=== PATIENT | female | born 1985 | race African-American/Black ===

== ENCOUNTER 2017-09-19 19:10 | Observation (INO) | payer OTHER ==
[~2017-09-19] VITALS: Ht 167.6 cm; Wt 75.3 kg
[~2017-09-19 19:10] MED LIST: FERR1TAB25 PO; IBUP-779 PO; MULT1CAP34 PO
[2017-09-19] MEDS: LACTATED RINGERS 1,000 ML IV SCH ×2 (19:53→21:45)
[2017-09-19 20:07] LABS: CLARITY URINE CLOUDY (CLEAR); COLOR URINE YELLOW (YELLOW); GLUCOSE URINE NEGATIVE (NEGATIVE); KETONES URINE NEGATIVE (NEGATIVE); LEUKOCYTE ESTERASE URINE 1+ (NEGATIVE); NITRITE URINE NEGATIVE (NEGATIVE); OCCULT BLOOD URINE NEGATIVE (NEGATIVE); PROTEIN URINE NEGATIVE (NEGATIVE); SPECIFIC GRAVITY URINE 1.031 (1.005-1.030)
[2017-09-19 20:18] LABS: *AMPHETAMINES SCREEN URINE NEGATIVE (NEGATIVE); *BARBITURATES SCREEN URINE NEGATIVE (NEGATIVE); *BENZODIAZEPINES SCREEN URINE NEGATIVE (NEGATIVE); *COCAINE SCREEN URINE NEGATIVE (NEGATIVE); CANNABINOID URINE SCREEN NEGATIVE (NEGATIVE); METHADONE URINE SCREEN NEGATIVE (NEGATIVE); OPIATES URINE SCREEN NEGATIVE (NEGATIVE); PHENCYCLIDINE URINE SCREEN NEGATIVE (NEGATIVE)
[2017-09-19] MEDS ORDERED: CEFAZOLIN 2,000 MG in DEXT 5% WATER 100 ML IV SCH (22:00)
== END 2017-09-19 22:42 | disposition home or self-care (01) ==
LOC: L&D 19:10
PROVIDERS: ADMIT Obstetrics & Gynecology; ATTEND Obstetrics & Gynecology
DX: O62.9 Abnormality of forces of labor, unspecified (principal); Z3A.39 39 weeks gestation of pregnancy
CPT/HCPCS: 76805; 76818; 80305; 81001; 96365; 99281; G0378; J0690; J7120; J7060

== ENCOUNTER 2017-09-20 02:23 | Inpatient (IN) | payer OTHER ==
[~2017-09-20] VITALS: Ht 172.7 cm; Wt 76.2 kg
[2017-09-20] MEDS ORDERED: DEXT 5%/LR + PITOCIN 20UNITS/L 1,000 ML IV SCH ×2 (03:07→05:21)
[2017-09-20] MEDS ORDERED: LACTATED RINGERS 1,000 ML IV SCH (03:07)
[2017-09-20] MEDS ORDERED: CARBOPROST TROMETHAMINE 250 MCG/ML AMPUL IM PRN (03:15)
[2017-09-20] MEDS ORDERED: METHYLERGONOVINE MALEATE 0.2 MG/ML IM PRN ×2 (03:15→05:30)
[2017-09-20] MEDS ORDERED: NALOXONE HCL 0.4 MG/ML 1ML VIAL IM PRN (03:15)
[2017-09-20] MEDS ORDERED: LIDOCAINE HCL 1% 20ML VIAL (Pyxis) INJ INFIL SCH (03:15)
[2017-09-20] MEDS ORDERED: MISOPROSTOL 100MCG TABLET VG SCH (03:15)
[2017-09-20] MEDS ORDERED: BUTORPHANOL TARTRATE 2 MG/ML VIAL IV PRN (03:15)
[2017-09-20] MEDS ORDERED: PENICILLIN G POTASSIUM 5 MMU in DEXT 5% WATER 100 ML IV NR (04:00)
[2017-09-20 05:13] LABS: CARBON DIOXIDE 20 mEq/L (21-32); CHLORIDE 103 mEq/L (98-107)
[2017-09-20 05:16] LABS: INR 0.9; PARTIAL THROMBOPLASTIN TIME 27.6 sec (23.4-31.0); PROTHROMBIN TIME 9.1 sec (9.4-11.6)
[2017-09-20 05:23] LABS: BASOPHILS % 0.4 % (0.0-2.0); EOSINOPHILS % 0.2 % (0.0-5.0); HEMATOCRIT. 37.1 % (36.0-48.0); HEMOGLOBIN. 12.2 g/dL (12.0-16.0); MEAN CORPUSCULAR HEMOGLOBIN 29.5 pg (28.0-32.0); MEAN CORPUSCULAR VOLUME 90.1 fL (81.0-99.0); MEAN PLATELET VOLUME 12.4 fl (7.4-10.4); MONOCYTES % 10.6 % (2.0-8.0); NEUTROPHILS % 62.8 % (40.0-76.0); PLATELET 145 x1000/uL (130-400); RED BLOOD CELL COUNT 4.12 mill/uL (4.2-5.4); RED CELL DISTRIBUTION WIDTH 14.6 % (11.6-14.6)
[2017-09-20] MEDS ORDERED: RHO(D) IMMUNE GLOBULIN 300 MCG/SYR IM PRN (05:30)
[2017-09-20] MEDS ORDERED: LANOLIN OINT 0.25 GM TUBE TOP PRN (05:30)
[2017-09-20] MEDS ORDERED: IBUPROFEN 400MG TABLET PO PRN (05:30)
[2017-09-20 07:52] LABS: HEPATITIS B SURFACE ANTIGEN NEGATIVE; RUBELLA IGG 30.9 IU/mL (4.99-10)
[2017-09-20 08:00] VITALS: BP 112/62
[2017-09-20] MEDS: IBUPROFEN 800MG TABLET PO PRN ×2 (08:17→20:27)
[2017-09-20 08:30] VITALS: BP 123/51
[2017-09-20] MEDS ORDERED: PRENATAL VIT/FE FUMARATE/FA TABLET PO SCH (09:00)
[2017-09-20] MEDS ORDERED: INFLUENZA VIRUS VACCINE 0.5ML SYR IM ONE (10:00)
[2017-09-20 12:29] LABS: *AMPHETAMINES SCREEN URINE NEGATIVE (NEGATIVE); *BARBITURATES SCREEN URINE NEGATIVE (NEGATIVE); *BENZODIAZEPINES SCREEN URINE NEGATIVE (NEGATIVE); *COCAINE SCREEN URINE NEGATIVE (NEGATIVE); CANNABINOID URINE SCREEN NEGATIVE (NEGATIVE); METHADONE URINE SCREEN NEGATIVE (NEGATIVE); OPIATES URINE SCREEN NEGATIVE (NEGATIVE); PHENCYCLIDINE URINE SCREEN NEGATIVE (NEGATIVE)
[2017-09-20 16:40] VITALS: BP 108/60
[2017-09-20 19:30] VITALS: BP 113/65
[2017-09-20 23:30] VITALS: BP 116/70
[2017-09-21 06:59] LABS: BASOPHILS % 0.3 % (0.0-2.0); EOSINOPHILS % 0.6 % (0.0-5.0); HEMATOCRIT. 33.7 % (36.0-48.0); HEMOGLOBIN. 11.5 g/dL (12.0-16.0); LYMPHOCYTES % 19.2 % (20.0-50.0); MEAN CORPUSCULAR HEMOGLOBIN 31.1 pg (28.0-32.0); MEAN CORPUSCULAR VOLUME 91.2 fL (81.0-99.0); MEAN PLATELET VOLUME 11.3 fl (7.4-10.4); NEUTROPHILS % 69.9 % (40.0-76.0); PLATELET 174 x1000/uL (130-400); RED BLOOD CELL COUNT 3.69 mill/uL (4.2-5.4); RED CELL DISTRIBUTION WIDTH 14.4 % (11.6-14.6)
[2017-09-21 08:00] VITALS: BP 121/77
[2017-09-21] MEDS: IBUPROFEN 800MG TABLET PO PRN ×2 (09:17→16:10)
[2017-09-21 16:41] VITALS: BP 115/70
[2017-09-21 20:15] VITALS: BP 126/68
[2017-09-22 04:50] VITALS: BP 118/80
[2017-09-22 08:00] VITALS: BP 119/74
== END 2017-09-22 13:30 | disposition home or self-care (01) | DRG 560 ==
LOC: OBSVTOIN 02:23 → L&D 02:23 → 7EST PP/OB 08:12
PROVIDERS: ADMIT Obstetrics & Gynecology; ATTEND Obstetrics & Gynecology
PROC: 10E0XZZ Delivery of Products of Conception, External Approach (ICD-10-PCS; principal; 2017-09-20 04:58)
DX: O77.0 Labor and delivery complicated by meconium in amniotic fluid (principal); D64.9 Anemia, unspecified; O99.03 Anemia complicating the puerperium; Z3A.40 40 weeks gestation of pregnancy; Z37.0 Single live birth
CPT/HCPCS: 36415; 80053; 80305; 84550; 85025; 85384; 85610; 85730; 86592; 86703; 86762; 86850; 86900; 87340; 99281; G0378; J0595; J2310; J2540; J2590; J7060; J7120